=== PATIENT | male | born 1955 | race Caucasian/White ===

== ENCOUNTER 2016-12-28 07:15 | Emergency (ER) | payer BC ==
[2016-02-24 12:07] VITALS: BMI 33.5
[~2016-12-28 07:15] MED LIST: ADVAIR 250/501 DISK INH; ASPIRIN 81 MG E81 MG PO; FLOMAX0.4 MG PO; GLUCOPHAGE1000 MG PO; HYDROCODON-ACE1 EAC6 PO; MOBIC7.5 MG PO; NORCO 10/325 TA1 TA1 PO; PROVENTIL2 MG PO; ZESTRIL20 MG PO
[2016-12-28 07:47] LABS: APPEARANCE SLT CLOUDY (CLEAR); BILIRUBIN NEGATIVE (NEGATIVE); COLOR YELLOW (YELLOW); GLUCOSE 50 mg/dL (NEGATIVE); KETONE SMALL mg/dL (NEGATIVE); LEUKOCYTE ESTERASE 1+ (NEGATIVE); NITRITE NEGATIVE (NEGATIVE); PROTEIN NEGATIVE (NEGATIVE); SPECIFIC GRAVITY 1.015 (1.005-1.020); UROBILINOGEN NORMAL (NORMAL)
[2016-12-28 07:49] LABS: BACTERIA FEW /hpf (NONE SEEN); EPITHELIAL CELLS 0-5 /hpf (0-5); MUCUS <1+ /lpf (NONE SEEN); RED CELLS - URINE >50 /hpf (0-5)
[2016-12-28 07:58] LABS: BASOPHILS 0.2 % (0-2); EOSINOPHILS 2.2 % (0-7); HEMATOCRIT 42.2 % (42.0-54.0); HEMOGLOBIN 14.3 g/dL (13.5-17.5); IMMATURE GRANULOCYTES 0.3 % (0-5); LYMPHOCYTES 14.1 % (15-50); MCH 31.2 pg (26.0-34.0); MCHC 33.9 g/dL (31.0-37.0); MCV 92.1 fL (80.0-100.0); MEAN PLATELET VOLUME 10.2 fL (7.4-10.4); MONOCYTES 7.4 % (2-11); NEUTROPHILS 75.8 % (40-80); PLATELET COUNT 271 10x3/uL (130-400); RBC 4.58 10x6/uL (4.20-6.10); RDW 12.7 % (11.5-14.5); WBC 11.3 10x3/uL (4.8-10.8)
[2016-12-28 08:30] LABS: ALKALINE PHOSPHATASE 47 U/L (46-116); ALT (SGPT) 125 U/L (10-68); BILIRUBIN - TOTAL 0.51 mg/dL (0.2-1.3); CALC OSMOLALITY 293 mosm/kg (275-300); CALCIUM 9.6 mg/dL (8.5-10.1); CARBON DIOXIDE 23.2 mmol/L (21.0-32.0); CHLORIDE - SERUM 103 mmol/L (98-107); CREATININE - SERUM 1.5 mg/dL (0.6-1.3); POTASSIUM - SERUM 5.1 mmol/L (3.5-5.1); PROTEIN - SERUM 7.5 g/dL (6.4-8.2); SODIUM 140 mmol/L (136-145); UREA NITROGEN 27 mg/dL (7-18); eGFR NON AFRICAN AMERICAN 51 mL/min (90-120)
[2016-12-28 08:35] LABS: GLUCOSE 279 mg/dL (74-106)
[2016-12-28 08:47] LABS: MAGNESIUM - SERUM 1.8 mg/dL (1.8-2.4); PRO BNP 49 pg/mL (0-125)
[2016-12-28 08:55] LABS: CREATINE KINASE 952 UL (21-232); TROPONIN-I < 0.017 ng/mL (0.000-0.060)
[2016-12-28 08:56] LABS: CKMB 27.7 U/L (0.0-3.6)
== END 2016-12-28 09:29 | disposition home or self-care (01) ==
LOC: D.ER 07:15
PROVIDERS: Emergency Medicine
DX: N20.1 Calculus of ureter (principal); N23 Unspecified renal colic; R00.1 Bradycardia, unspecified

== ENCOUNTER → 2017-04-24 12:36 | Outpatient (CLI) | payer BC ==
[2016-02-24 12:07] VITALS: BMI 33.5
== END | disposition home or self-care (01) ==
LOC: D.CT 12:36
DX: R31.9 Hematuria, unspecified (principal)

== ENCOUNTER → 2017-10-22 09:05 | Outpatient (CLI) | payer BC ==
[2016-02-24 12:07] VITALS: BMI 33.5
== END | disposition home or self-care (01) ==
LOC: D.CT 09:05
DX: R91.1 Solitary pulmonary nodule (principal)

== ENCOUNTER → 2019-09-22 08:54 | Outpatient (CLI) | payer BC ==
[2016-02-24 12:07] VITALS: BMI 33.5
--- NOTE | 2019-09-25 11:53 | EC ---
PATIENT:LISHA CUEVAS DATE OF SERVICE: 09/22/19 SEX: M MEDICAL RECORD: [id number] DATE OF : [birth year] [facility] AGE OF PATIENT: 64 ADMISSION DATE: 09/22/19 REFERRING PHYSICIAN: INTERPRETING PHYSICIAN: RADHA SAHU MD ECHOCARDIOGRAM REPORT ECHO CHARGES 4 ECHO COMPLETE Date: 09/22/19 CLINICAL DIAGNOSIS: HTN/CAD HX OF TRACE MR/TR ECHOCARDIOGRAPHIC MEASUREMENTS (adult normal given) AC root (d.<3.7cm) 3.3 cm LV Septum d (<1.2 cm> 1.2 cm Valve Excursion 1.6 cm LV Septum (systole) 1.6 cm Left Atria (s.<4.0cm> 3.5 cm LVPW d(<1.2cm) 1.4 cm RV (d.<2.3cm) 3.5 cm LVPW (sytole) 1.9 cm LV diastole(<5.6CM) 5.0 cm MV E-F(>70mm/sec) cm LV systole 2.7 cm LVOT Diameter 1.8 cm MV exc.(>10mm) 0.6 cm Est.ejection fraction (50-75%) % DOPPLER: LVIT cm/sec A 99.0 cm/sec E 91.0 cm/sec LA cm/sec RVSP 17 mmHg LVOT 112 cm/sec AOP1/2T m/s Asc. Ao 149 cm/sec RVOT 104 cm/sec RA cm/sec PA 148 cm/sec AV Gradient Peak 8.91 mmHg AV Mean 4.96 mmHg AV Area 2.2 cm MV Gradient Peak 4.13 mmHg MV Mean 2.11 mmHg MV Area cm COMMENTS: Clinical Research Nurse Coordinator: 2 AQUILES PARSONS Plaster Pattern Caster: 3 Dr. Barroso TAPE# PACS Pericardial Effusion N DATE OF SERVICE: Mild LVH. LV internal dimension is normal. Wall motion is normal. EF is greater than or equal to 55%. Aortic valve is tricuspid. No evidence of stenosis by Doppler interrogation. Left atrium normal at 3.5 cm. Mitral valve shows no prolapse. Trace MR. Right-sided chambers are grossly normal. Trace TR. TRANSINT:[id number] Voice Confirmation ID: [id number] DOCUMENT ID: [id number] ECHOCARDIOGRAM REPORT [id number] LISHA CUEVAS RADHA SAHU MD at 1153 CC: [id number] DICTATION DATE: 09/23/19 1341 ARCHITECT NAVAL: 09/23/19 1356 DEP CLI 09/22/19 [id number] [place] [address]
== END | disposition home or self-care (01) ==
LOC: D.HCCECHO 08:54
PROVIDERS: ATTEND Internal Medicine Interventional Cardiology
DX: I10 Essential (primary) hypertension (principal)

== ENCOUNTER → 2020-09-28 07:46 | Outpatient (CLI) | payer BC ==
[2016-02-24 12:07] VITALS: BMI 33.5
--- NOTE | ~2020-09-28 | EC ---
PATIENT:LISHA CUEVAS DATE OF SERVICE: 09/28/20 SEX: M MEDICAL RECORD: [id number] DATE OF : 57 LOCATION:[facility] AGE OF PATIENT: 65 ADMISSION DATE: 09/28/20 REFERRING PHYSICIAN: INTERPRETING PHYSICIAN: RADHA SAHU MD ECHOCARDIOGRAM REPORT ECHO CHARGES 4 ECHO COMPLETE Date: 09/28/20 CLINICAL DIAGNOSIS: ASSESS EF/LVH/AO. SCLEROSIS HX OF CAD/HTN ECHOCARDIOGRAPHIC MEASUREMENTS (adult normal given) AC root (d.<3.7cm) 3.2 cm LV Septum d (<1.2 cm> 1.4 cm Valve Excursion 1.7 cm LV Septum (systole) 1.7 cm Left Atria (s.<4.0cm> 3.4 cm LVPW d(<1.2cm) 1.3 cm RV (d.<2.3cm) 3.6 cm LVPW (sytole) 1.7 cm LV diastole(<5.6CM) 5.0 cm MV E-F(>70mm/sec) cm LV systole 3.3 cm LVOT Diameter 1.9 cm MV exc.(>10mm) 1.2 cm Est.ejection fraction (50-75%) % DOPPLER: LVIT cm/sec A 104.0cm/sec E 97.0 cm/sec LA cm/sec RVSP 18 mmHg LVOT 92 cm/sec AOP1/2T m/s Asc. Ao 141 cm/sec RVOT 78 cm/sec RA cm/sec PA 127 cm/sec AV Gradient Peak 7.90 mmHg AV Mean 4.30 mmHg AV Area 1.7 cm MV Gradient Peak 5.38 mmHg MV Mean 2.27 mmHg MV Area cm COMMENTS: Certified Flex Endoscope Reprocessor: 2 AQUILES PARSONS Critical Care Nurse Specialist: 3 Dr. Barroso TAPE# PACS Pericardial Effusion N DATE OF SERVICE: Adequate 2D, color-flow imaging, spectral Doppler, and M-Mode FINDINGS: LVH is present. LV internal dimensions are normal. Wall motion is normal. EF is greater than or equal to 55%. Aortic valve is tricuspid. No evidence of stenosis by Doppler interrogation. Left atrium is normal at 3.4 cm. Mitral valve shows no prolapse. Trace MR. Right side is grossly normal. Trace TR. ECHOCARDIOGRAM REPORT [id number] LISHA CUEVAS TRANSINT:[id number] Voice Confirmation ID: [id number] DOCUMENT ID: [id number] RADHA SAHU MD CC: [id number] DICTATION DATE: 09/29/20912 [employer]IATE: 09/29/20 1430 [facility] CLI 09/28/20 [facility] [address] [place] [address]
== END | disposition home or self-care (01) ==
LOC: D.HCCECHO 07:46
PROVIDERS: ATTEND Internal Medicine Interventional Cardiology
DX: I10 Essential (primary) hypertension (principal)